=== PATIENT | female | born 1960 | race Caucasian/White ===

== ENCOUNTER → 2018-02-10 | Outpatient (CLI) | payer OTHER ==
[~2018-02-10] MED LIST: ALOGLIPTIN-PIO1 EAC1 PO; AMLODIPINE BESY10 MG PO; ASPIR 8181 M1 PO; ATORVASTATIN CA40 MG PO; BENICAR40 MG PO; BONIVA150 MG PO; COREG25 MG PO; GRALISE600 MG PO; HYDROCHLOROTHIA25 M2 PO; HYDROCODON-ACE1 EAC7 PO; JANUVIA100 MG PO; MEDICHOICE TRI1 EACH TOP; METFORMIN HCL500 MG PO; NAPROXEN375 MG PO; OMEGA-31000 M1 PO; PIOGLITAZONE15 MG; UNICOMPLEX M TA1 TA1 PO; VENCLEXTA100 MG PO; VITAMIN D250000 UNIT PO; WELLBUTRIN SR150 MG PO
== END ==
LOC: M.RAD 10:51
DX: Z12.31 Encounter for screening mammogram for malignant neoplasm of breast (principal)